=== PATIENT | female | born 1960 | race Caucasian/White ===

== ENCOUNTER 2018-09-07 07:46 | Emergency (ER) | payer OTHER, BC ==
[2018-09-07 07:47] VITALS: BMI 31.4
--- NOTE | 2018-09-07 07:58 | ED PDOC ---
Arrival/HPI - General Time Seen by Provider: 09/07/18 07:47 Historian: Patient - History of Present Illness Narrative History of Present Illness (Text): 09/07/18 07:55 58 year old female, whose past medical history includes hypertension, who presents to the Emergency department complaining of left foot and ankle pain x [employer]. Patient states she was going to work, opened the door, and tripped. Patient states she twisted her left ankle and fell onto the left side. Patient denies any fever, chills, chest pain, shortness of breath, nausea, vomiting, diarrhea, back pain, neck pain, headache, dizziness, or any other complaints. Time/Duration: Prior to Arrival Symptom Onset: Sudden Symptom Course: Unchanged Activities at Onset: Light Context: Work Past Medical History - Provider Review Nursing Documentation Reviewed: Yes - Cardiac Hx Hypertension: Yes Family/Social History - Physician Review Nursing Documentation Reviewed: Yes Family/Social History: Unknown Family HX Allergies/Home Meds Allergies/Adverse Reactions: Allergies No Known Allergies Allergy (Verified 03/20/18 10:51) Home Medications: Home Meds Medication Instructions Recorded Confirmed amLODIPine [Norvasc] 5 mg PO DAILY 03/20/18 03/20/18 Review of Systems - Physician Review All systems were reviewed & negative as marked: Yes - Review of Systems Constitutional: Normal Eyes: Normal ENT: Normal Respiratory: Normal. absent: SOB, Cough Cardiovascular: Normal. absent: Chest Pain Gastrointestinal: Normal. absent: Abdominal Pain Genitourinary Female: Normal. absent: Dysuria, Frequency Musculoskeletal: Other (left foot/ankle pain). absent: Back Pain, Neck Pain Skin: Normal. absent: Rash Neurological: Normal. absent: Headache, Dizziness Endocrine: Normal Hemo/Lymphatic: Normal Psychiatric: Normal Physical Exam - Systems Exam Head: Present: Atraumatic, Normocephalic Pupils: Present: PERRL Extroacular Muscles: Present: EOMI Conjunctiva: Present: Normal Mouth: Present: Moist Mucous Membranes Neck: Present: Normal Range of Motion Respiratory/Chest: Present: Clear to Auscultation, Good Air Exchange. No: Respiratory Distress, Accessory Muscle Use Cardiovascular: Present: Regular Rate and Rhythm, Normal S1, S2. No: Murmurs Abdomen: No: Tenderness, Distention, Peritoneal Signs Back: Present: Normal Inspection Upper Extremity: Present: Normal Inspection. No: Cyanosis, Edema Lower Extremity: Present: Tenderness (left foot and ankle), Swelling (left foot and ankle). No: Edema Neurological: Present: GCS=15, CN II-XII Intact, Speech Normal Skin: Present: Warm, Dry, Normal Color. No: Rashes Psychiatric: Present: Alert, Oriented x 3, Normal Insight, Normal Concentration Medical Decision Making ED Course and Treatment: 09/07/18 07:58 Impression: 58 year old female presents to the emergency department complaining of left foot/ankle pain. Plan: -- Anaprox -- Xray left foot -- Xray rt ankle -- Reassess and disposition Progress Notes: 09/07/18 09:51 Xray left foot and left ankle, reviewed, shows: IMPRESSION: Nondisplaced fracture of the base of the 5th metatarsal. 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 Small inferior plantar calcaneal spur. Pes planus. 09/07/18 09:56 Case discussed with podiatry resident, who suggests a splint and outpatient f/u. 09/07/18 12:34 splint crutches given. outpt fu. - Scribe Statement The provider has reviewed the documentation as recorded by the Scribvianca Bourne All medical record entries made by the Yanelisibvianca were at my direction and personally dictated by me. I have reviewed the chart and agree that the record accurately reflects my personal performance of the history, physical exam, medical decision making, and the department course for this patient. I have also personally directed, reviewed, and agree with the discharge instructions and disposition. Disposition/Present on Arrival - Present on Arrival Any Indicators Present on Arrival: No - Disposition Have Diagnosis and Disposition been Completed?: Yes Diagnosis: Ankle sprain, Metatarsal fracture Disposition: HOME/ ROUTINE Disposition Time: 10:00 Condition: STABLE Discharge Instructions (ExitCare): Toe Fracture, Ankle Sprain (DC) Additional Instructions: follow up with specialist. return to er with worsening symptoms or concerns. Prescriptions: RX: Naproxen 500 mg PO BID PRN #14 tablet PRN Reason: Pain, Mild (1-3) Referrals: Podiatry Clinic [Outside] - Follow up with primary Jeff Diamond DO [Staff Provider] - Follow up with primary Forms: [employer] ([place]an)
[2018-09-07 08:05] VITALS: RESP 18; O2SAT 99
[2018-09-07] MEDS ORDERED: Naproxen 550 mg Tab PO STA (08:09)
[2018-09-07 09:33] VITALS: BP 148/69; PULSE 79; TEMP 98
--- NOTE | 2018-09-07 09:42 | RAD ---
Date of service: 09/07/2018 PROCEDURE: Left Ankle Radiographs. Left Foot Radiographs. HISTORY: trauma COMPARISON: None available. FINDINGS: BONES: Osteopenia. Nondisplaced fracture of the base of the 5th metatarsal. 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 Pes planus. Inferior plantar calcaneal spur. JOINTS: Degenerative changes. Ankle mortise maintained. Talar dome intact SOFT TISSUES: Bimalleolar soft tissue swelling. OTHER FINDINGS: None. IMPRESSION: Nondisplaced fracture of the base of the 5th metatarsal. 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 Small inferior plantar calcaneal spur. Pes planus.
== END 2018-09-07 10:34 | disposition home or self-care (01) ==
LOC: ED 07:46
DX: S93.402A Sprain of unspecified ligament of left ankle, initial encounter (principal); S92.355A Nondisplaced fracture of fifth metatarsal bone, left foot, initial encounter for closed fracture; W01.0XXA Fall on same level from slipping, tripping and stumbling without subsequent striking against object, initial encounter; I10 Essential (primary) hypertension